=== PATIENT | female | born 1960 | race Caucasian/White ===

== ENCOUNTER 2017-06-25 07:34 | Day surgery (SDC) | payer OTHER ==
--- NOTE | 2017-06-20 16:50 | HP ---
ADMISSION DIAGNOSIS: Symptoms of reflux, epigastric discomfort. No colonoscopy to date, age 57. Excision lesion left knee. ANTICIPATED PROCEDURE: EGD, colonoscopy, and excision of lesion knee. PAST MEDICAL HISTORY: ALLERGIES: None. MEDICATIONS: None. SURGERIES: Left knee, tonsillectomy, D&C, uterine ablation. SOCIAL HISTORY: Negative. FAMILY HISTORY: Negative. REVIEW OF SYSTEMS: Frandy's, hypertension. PHYSICAL EXAMINATION: VITAL SIGNS: Normal. CHEST: Clear. COR: Regular. PLAN: EGD, colonoscopy, and excision lesion of the left knee.
[~2017-06-25 07:34] MED LIST: Lactated Ringers 1,000 ML IV SCH
[2017-06-25] MEDS ORDERED: Versed 2 MG/2 ML Injection IV ONE (07:35)
[2017-06-25] MEDS ORDERED: DIPRIVAN 200 MG/20 ML IV ONE (07:35)
[2017-06-25] MEDS ORDERED: Lactated Ringers 1,000 ML IV ONE ×2 (07:42→09:58)
[2017-06-25 08:09] VITALS: BP 141/88; PULSE 81; O2SAT 95
[2017-06-25] MEDS ORDERED: Kenalog-40 ONE (08:26)
[2017-06-25] MEDS ORDERED: XYLOCAINE 1% HCL 20 ML MDV ONE (08:26)
--- NOTE | 2017-06-26 08:03 | OP ---
SURGERY DATE/TIME: 06/25/2017 0935 PREOPERATIVE DIAGNOSES: 1) Epigastric pain, symptoms of gastroesophageal reflux disease. No recent examination. 2) The patient requires screening colonoscopy. 3) The patient has a hard, firm lesion left knee that has been painful and it is slightly larger. POSTOPERATIVE DIAGNOSIS: PROCEDURES: 1) Excision of 1 cm lesion through a 3 cm elliptical excision and closure. 2) EGD with hot polypectomy x12 with findings of 1.5 inch hiatal hernia, grade II gastroesophageal reflux disease and 12 gastric polyps. 3) Colonoscopic examination with 1 hot polyp taken. ANTICIPATED FOLLOW UP: Three years for follow up of polyps. SURGEON: Isidro Goel M.D. ANESTHESIA: MAC. INDICATION: The patient has a father with colon cancer. She has symptoms of gastroesophageal reflux disease long standing. She has been on multiple treatment regimens. She is still having epigastric pain. She presents for screening. She also has a hard, firm lesion on the knee that has been painful and enlarging. DESCRIPTION OF PROCEDURE: She is taken to surgery. Elliptical excision of knee lesion. Closed with 3-0 Vicryl, 4-0 Vicryl and Steri-Strips. EGD performed. A 2 inch hiatal hernia. Grade II over III gastroesophageal reflux disease. There were a dozen gastric polyps taken with hot biopsy forceps. Pylorus satisfactory. Duodenal bulb satisfactory. Second portion satisfactory. Scope withdrawn and looped upon itself. The above stated things were noted. Anal digital examination. The scope advanced to the cecum. Ileocecal valve and base of the cecum satisfactory. Ascending, hepatic, transverse, splenic, descending. In the high rectum there was a 1 cm polyp taken with hot biopsy forceps to completion. The patient tolerated the procedure satisfactorily. Findings discussed with the family in the waiting room.
== END 2017-06-25 12:00 | disposition home or self-care (01) ==
LOC: SDC 07:34
PROVIDERS: ATTEND Surgery
PROC: 0HBLXZZ Excision of Left Lower Leg Skin, External Approach (ICD-10-PCS; principal; 2017-06-25)
PROC: 0DB68ZX Excision of Stomach, Via Natural or Artificial Opening Endoscopic, Diagnostic (ICD-10-PCS; 2017-06-25)
PROC: 0DBP8ZX Excision of Rectum, Via Natural or Artificial Opening Endoscopic, Diagnostic (ICD-10-PCS; 2017-06-25)
DX: K21.9 Gastro-esophageal reflux disease without esophagitis (principal); Z12.11 Encounter for screening for malignant neoplasm of colon; L98.9 Disorder of the skin and subcutaneous tissue, unspecified; R20.8 Other disturbances of skin sensation; K31.7 Polyp of stomach and duodenum; K62.1 Rectal polyp; Z80.0 Family history of malignant neoplasm of digestive organs
CPT/HCPCS: 00740; 00810; 36415; 88305; J2250; J2704; J3301

== ENCOUNTER 2020-12-24 16:33 | Emergency (ER) | payer OTHER ==
[2020-12-24] MEDS ORDERED: TORAdol 30 mg Injection IV ONE (16:52)
[2020-12-24] MEDS ORDERED: Zofran 4 MG/2 ML VIAL IV ONE (16:52)
--- NOTE | 2020-12-24 16:52 | ERPHSYRPT ---
- History of Present Illness Time Seen by Provider: 12/24/20 16:39 Source: patient Exam Limitations: no limitations Physician History: The patient is a 60-year-old female with chief complaint of left upper quadrant left abdominal oblique pain that started just shortly prior to arrival. The pain is described as a sharp pain nonradiating constant and severe. The patient reportedly had an episode of nausea vomiting shortly after pain began. The pain has since started to roberto. She denies fever, chills, recent illness, diarrhea, dysuria, increased urinary frequency, urgency and bladder pressure. She denies history of kidney stones. She has not taken anything for pain prior to arrival. Associated Symptoms: nausea, vomiting, abdominal pain, No chest pain, No fever, No headaches Allergies/Adverse Reactions: peanut Allergy (Intermediate, Verified 12/24/20 16:51) Tightness of Throat erythromycin base [Erythromycin Base] Allergy (Verified 12/24/20 16:51) Vomiting Home Medications: Benicar Hct 20-12.5 mg Tablet 1 tab PO DAILY 04/14/13 [History] Celecoxib 100 mg [celeBREX 100 MG] 200 mg PO BID 04/14/13 [History] Cetirizine HCl 10 mg PO DAILY 04/14/13 [History] Guaifenesin [Mucinex] 600 mg PO BID 06/17/17 [History] Levothyroxine Sodium 112 Mcg [Synthroid 112 Mcg] 125 mcg PO DAILY 06/17/17 [History] Metformin HCl 500 mg [Glucophage 500 MG] 1,000 mg PO BID 06/17/17 [History] Multivitamin [Multivitamins] 1 each PO DAILY 06/17/17 [History] Omeprazole 20 MG [Prilosec 20 mg] 20 mg PO DAILY 06/17/17 [History] Hydroxychloroquine Sulfate [Plaquenil] 1 ea DAILY 12/24/20 [History] Pravastatin Sodium [Pravachol] 1 ea DAILY 12/24/20 [History] Zolpidem Tartrate 10 mg [Ambien 10 MG] 10 mg PO DAILY 12/24/20 [History] Hx Tetanus, Diphtheria Vaccination/Date Given: No (PT UNSURE) Hx Influenza Vaccination/Date Given: Yes (2012) Hx Pneumococcal Vaccination/Date Given: No - Review of Systems Constitutional: No Fever, No Chills Respiratory: No Cough, No Cyanosis, No Dyspnea, No Dyspnea on Exertion ([facility]) Cardiac: No Chest Pain Abdominal/Gastrointestinal: Abdominal Pain, Nausea, Vomiting, No Diarrhea, No Constipation, No Hematemesis, No Appetite Changes Genitourinary Symptoms: No Dysuria, No Frequency, No Hematuria, No Hesitancy - Past Medical History Pertinent Past Medical History: Yes Neurological History: No Pertinent History ENT History: No Pertinent History Cardiac History: Hypertension Respiratory History: No Pertinent History Endocrine Medical History: Hypothyroidism, Other Musculoskeletal History: Arthritis GI Medical History: No Pertinent History History: No Pertinent History Psycho-Social History: No Pertinent History Female Reproductive Disorders: No Pertinent History Other Medical History: Frandy Disease - Past Surgical History Past Surgical History: Yes Neuro Surgical History: No Pertinent History Cardiac: No Pertinent History Respiratory: No Pertinent History Gastrointestinal: No Pertinent History Genitourinary: No Pertinent History Musculoskeletal: Orthopedic Surgery Female Surgical History: Other Other Surgical History: UTERINE ABLATION, acl with partial Knee replacement lt - Social History Smoking Status: Never smoker Exposure to second hand smoke: No Drug Use: none Patient Lives Alone: No - Nursing Vital Signs Nursing Vital Signs: Initial Vital Signs Temperature 98.6 F 12/24/20 16:39 Pulse Rate 78 12/24/20 16:39 Respiratory Rate 18 12/24/20 16:39 Blood Pressure 172/113 12/24/20 16:39 O2 Sat by Pulse Oximetry 99 12/24/20 16:39 Pain Scale Pain Intensity 2 - Physical Exam General Appearance: no apparent distress, mild distress, alert, obese Eye Exam: PERRL/EOMI, No scleral icterus, No pale conjunctivae Ears, Nose, Throat Exam: normal ENT inspection Neck Exam: normal inspection, supple Respiratory Exam: normal breath sounds, lungs clear, airway intact, No chest tenderness, No respiratory distress Cardiovascular Exam: regular rate/rhythm, normal peripheral pulses, capillary refill <2 sec, No murmur, No friction rub, No gallop Gastrointestinal/Abdomen Exam: soft, tenderness (LUQ and left oblique tendern ess), No distention, No mass, No guarding, No pulsatile mass, No hepatomegaly, No splenomegaly Pelvic Exam: not done, deferred Rectal Exam: deferred Back Exam: normal inspection, No CVA tenderness Extremity Exam: normal inspection Neurologic Exam: alert, oriented x 3, cooperative Skin Exam: normal color, warm, dry, No rash, No petechiae, No jaundice SpO2 Interpretation: normal O2 Delivery: Room Air - Course Nursing assessment & vital signs reviewed: Yes - CT Exams Abdomen/Pelvis CT Interpretation: Other (4mm calculus in the left ureter with minimal hydronephrosis) Ordered Tests: Active Orders 24 hr Category Date Time Status IV Insertion STAT Care 12/24/20 16:49 Active ABDOMEN AND PELVIS W CONTRAST [CT] Stat Exams 12/24/20 16:50 Taken BMP Stat Lab 12/24/20 17:15 Completed CBC W DIFF Stat Lab 12/24/20 17:15 Completed CULTURE,URINE Stat Lab 12/24/20 16:50 Received LIPASE Stat Lab 12/24/20 17:15 Completed UA W/RFX UR CULTURE Stat Lab 12/24/20 16:50 Completed Medication Summary Discontinued Medications Generic Name Dose Route Start Last Admin Trade Name Freq PRN Reason Stop Dose Admin Ketorolac Tromethamine 15 mg 12/24/20 16:52 12/24/20 16:58 Toradol 30 Mg Injection IV 12/24/20 16:53 15 mg STAT ONE Administration Ketorolac Tromethamine Confirm 12/24/20 16:55 Toradol 30 Mg Injection Administered 12/24/20 16:56 Dose 30 mg .ROUTE .STK-MED ONE Ondansetron HCl 4 mg 12/24/20 16:52 12/24/20 16:58 Zofran 4 Mg/2 Ml Vial IV 12/24/20 16:53 4 mg STAT ONE Administration Ondansetron HCl Confirm 12/24/20 16:55 Zofran 4 Mg/2 Ml Vial Administered 12/24/20 16:56 Dose 4 mg .ROUTE .STK-MED ONE Lab/Rad Data: Laboratory Result Diagrams 12/24/20 17:15 12/24/20 17:15 Laboratory Results 12/24/20 12/24/20 12/24/20 Range/Units 17:15 17:15 16:50 WBC 14.4 H (4.0-10.5) K/mm3 RBC 4.36 (4.1-5.4) M/mm3 Hgb 12.9 (12.0-16.0) gm/dl Hct 40.0 (35-47) % MCV 91.7 (78-100) fl MCH 29.6 (26-32) pg MCHC 32.3 (32-36) g/dl RDW 13.1 (11.5-14.0) % Plt Count 226 (150-450) K/mm3 MPV 11.5 H (7.5-11.0) fl Gran % 82.8 H (36.0-66.0) % Eos # (Auto) 0.07 (0-0.5) Absolute Lymphs (auto) 1.75 (1.0-4.6) Absolute Monos (auto) 0.63 (0.0-1.3) Lymphocytes % 12.2 L (24.0-44.0) % Monocytes % 4.4 (0.0-12.0) % Eosinophils % 0.5 (0.00-5.0) % Basophils % 0.1 (0.0-0.4) % Absolute Granulocytes 11.91 H (1.4-6.9) Basophils # 0.02 (0-0.4) Sodium 139 (137-145) mmol/L Potassium 4.9 (3.5-5.1) mmol/L Chloride 105 (98-107) mmol/L Carbon Dioxide 28 (22-30) mmol/L Anion Gap 11.5 (5-15) MEQ/L BUN 28 H (7-17) mg/dL Creatinine 0.88 (0.52-1.04) mg/dL Estimated GFR > 60.0 ML/MIN Glucose 120 H (74-106) mg/dL Calcium 10.8 H (8.4-10.2) mg/dL Lipase 194 (23-300) U/L Urine Color YELLOW (YELLOW) Urine Appearance SLIGHTLY CLOUDY (CLEAR) Urine pH 5.0 (5-6) Ur Specific [place] 1.023 (1.005-1.025) Urine Protein 30 (Negative) Urine Ketones NEGATIVE (NEGATIVE) Urine Blood LARGE (0-5) Nate/ul Urine Nitrite NEGATIVE (NEGATIVE) Urine Bilirubin NEGATIVE (NEGATIVE) Urine Urobilinogen NEGATIVE (0-1) mg/dL Ur Leukocyte Esterase NEGATIVE (NEGATIVE) Urine WBC (Auto) 6-10 (0-5) /HPF Urine RBC (Auto) 51-100 (0-2) /HPF U Epithel Cells (Auto) RARE (FEW) /HPF Urine Bacteria (Auto) FEW (NEGATIVE) /HPF Urine Mucus (Auto) SLIGHT (NEGATIVE) /HPF Urine Culture Reflexed YES (NO) Urine Glucose NEGATIVE (NEGATIVE) mg/dL - Progress Progress: improved Progress Note: 12/24/20 17:42 Presents with left upper quadrant pain and left oblique pain with nausea and vomiting. Differential at this time includes obstructing kidney stone, AAA, mass, pyelonephritis, splenic infarct, artery thrombosis. Will obtain general labs to include CBC, BMP, urine and a CT scan of her abdomen pelvis for further evaluation. 12/24/20 18:41 CT reviewed and showed no evidence of obstructing stone. Her UA showed evidence of hematuria. Currently awaiting formal radiology review of the CT abdomen pelvis for further evaluation. Patient care will be transitioned to Dr. Wilder pending workup findings. 12/24/20 19:11 The patient was reassessed to find that she was pain-free and was updated with her diagnosis and need to follow-up with urology. Counseled pt/family regarding: lab results, diagnosis, need for follow-up, rad results - Departure Departure Disposition: Home Clinical Impression: Hydronephrosis with obstructing calculus, Renal colic on left side Condition: Stable Critical Care Time: No Referrals: PARUL PECK [COURTESY STAFF] - Instructions: Kidney Stones (DC), Renal Colic Additional Instructions: Please return to the emergency department if your pain becomes worse despite taking your pain medications. Also, please return to the emergency department immediately if you develop a fever in the context with your pain, specifically a temperature of 100.4 Fahrenheit or greater or any chills. Prescriptions: Hydrocodone/APAP 5/325 [[place] 5/325 mg] 1 - 2 each PO Q6H PRN PRN #16 tablet MDD 6 PRN Reason: Pain Ondansetron [Ondansetron Odt] 4 mg PO Q6HPRN PRN #10 tab.rapdis PRN Reason: Nausea/Vomiting Tamsulosin HCl 0.4 mg [Flomax 0.4 MG] 0.4 mg PO DAILY #10 cap
[2020-12-24] MEDS ORDERED: TORAdol 30 mg Injection ONE (16:55)
[2020-12-24] MEDS ORDERED: Zofran 4 MG/2 ML VIAL ONE (16:55)
[2020-12-24 17:23] LABS: Absolute Neutrophil Ct (ANC) 11.91 (1.4-6.9); BASOPHIL % 0.1 % (0.0-0.4); Basophil (Absolute #) 0.02 (0-0.4); Eosinophil % 0.5 % (0.00-5.0); Eosinophil (Absolute #) 0.07 (0-0.5); Hemoglobin 12.9 gm/dl (12.0-16.0); Lymphocyte (Absolute #) 1.75 (1.0-4.6); Lymphocytes % 12.2 % (24.0-44.0); Mean Cell Volume 91.7 fl (78-100); Mean Corpuscular Hemoglobin 29.6 pg (26-32); Mean Corpuscular Hgb Concent. 32.3 g/dl (32-36); Mean Platelet Volume 11.5 fl (7.5-11.0); Monocyte (Absolute #) 0.63 (0.0-1.3); Monocytes % 4.4 % (0.0-12.0); Neutrophil % 82.8 % (36.0-66.0); Platelet Count 226 K/mm3 (150-450); Red Blood Count 4.36 M/mm3 (4.1-5.4); Red Cell Distribution Width 13.1 % (11.5-14.0); White Blood Count 14.4 K/mm3 (4.0-10.5)
[2020-12-24 17:30] LABS: Appearance SLIGHTLY CLOUDY (CLEAR); Bacteria FEW /HPF (NEGATIVE); Bilirubin NEGATIVE (NEGATIVE); Blood LARGE Ery/ul (0-5); Epithelial Cells RARE /HPF (FEW); Glucose NEGATIVE (NEGATIVE); Ketones NEGATIVE (NEGATIVE); Leukocyte Esterase NEGATIVE (NEGATIVE); Mucus SLIGHT /HPF (NEGATIVE); Nitrite NEGATIVE (NEGATIVE); Protein,Urine Dip 30 (Negative); RBC 51-100 /HPF (0-2); Specific Gravity 1.023 (1.005-1.025); Urobilinogen NEGATIVE mg/dL (0-1)
[2020-12-24 17:34] LABS: ANION GAP 11.5 MEQ/L (5-15); BLOOD UREA NITROGEN 28 mg/dL (7-17); CHLORIDE 105 mmol/L (98-107); Calcium 10.8 mg/dL (8.4-10.2); Carbon Dioxide 28 mmol/L (22-30); Creatinine 1 0.88 mg/dL (0.52-1.04); EST GLOMERULAR FILTRATION RATE > 60.0 ML/MIN; Glucose 120 mg/dL (74-106); LIPASE 194 U/L (23-300); Potassium 4.9 mmol/L (3.5-5.1); SODIUM 139 mmol/L (137-145)
[2020-12-24 19:36] VITALS: BP 147/73; PULSE 73; O2SAT 96
--- NOTE | 2020-12-25 08:54 | XRAY ---
Indication: Left upper quadrant pain and vomiting. Multiple contiguous axial images obtained through the abdomen and pelvis using 80 cc Isovue 370 contrast. Comparison: None Lung bases demonstrates mild dependent atelectasis and small left lower lobe calcified granuloma. No infiltrate or effusion. Heart is not enlarged. Small hiatal hernia. Noncontrasted stomach and bowel loops appear nonobstructed. Normal appendix. No free fluid/air. Suspect 4 mm distal left ureteral calculus approximately 2 cm proximal to the UVJ. Proximal left ureter is asymmetrically prominent up to 6 mm along with mild hydronephrosis consistent with partial obstructive uropathy. Spleen is enlarged measuring 14 cm with calcified granulomas. Remaining liver, gallbladder, pancreas, spleen, adrenal glands, kidneys, ureters, bladder, and uterus appear unremarkable. Minimal aortic calcifications. No AAA or pathologic retroperitoneal lymphadenopathy. Osseous structures intact with mild degenerative changes throughout the thoracolumbar spine. Impression: 1. 4 mm distal left ureteral calculus producing partial obstruction. 2. Incidental small hiatal hernia, splenomegaly, and old granulomatous disease.
== END 2020-12-24 19:45 | disposition home or self-care (01) ==
LOC: ED 16:33
DX: N13.2 Hydronephrosis with renal and ureteral calculous obstruction (principal); R10.12 Left upper quadrant pain; R11.2 Nausea with vomiting, unspecified; Z79.899 Other long term (current) drug therapy; I10 Essential (primary) hypertension; E03.9 Hypothyroidism, unspecified
CPT/HCPCS: 36000; 36415; 74177; 80048; 81001; 83690; 85025; 87086; 96374; 96375; 99284; J1885; J2405

== ENCOUNTER 2021-09-12 08:38 | Day surgery (SDC) | payer OTHER ==
[~2021-09-12 08:38] MED LIST changes: +Lactated Ringers 1,000 ML IV ONE; -Lactated Ringers 1,000 ML IV SCH
[2021-09-12] MEDS ORDERED: Lactated Ringers 1,000 ML IV SCH (09:00)
[2021-09-12] MEDS ORDERED: DIPRIVAN 200 MG/20 ML IV ONE ×2 (10:37→10:48)
[2021-09-12 11:33] VITALS: O2SAT 96
[2021-09-12 11:42] VITALS: BP 116/51; PULSE 75
--- NOTE | 2021-09-12 12:41 | OP ---
SURGERY DATE/TIME: 09/12/2021 1040 PREOPERATIVE DIAGNOSIS: Family history of colon cancer, personal history of polyps. POSTOPERATIVE DIAGNOSIS: Normal, redundant colon. PROCEDURE: Colonoscopy complete to cecum. SURGEON: Isidro Goel M.D. ANESTHESIA: MAC. COMPLICATIONS: None. CONDITION: Stable. INDICATION: A patient requiring evaluation. DESCRIPTION OF PROCEDURE: Taken to endoscopy. Left lateral decubitus position. Anal digital examination satisfactory. Scope introduced. Scope advanced to hepatic flexure. With care and patience and external pressure the scope was able to be dropped into the base of the cecum this was suctioned. It was satisfactory. Ileocecal valve, base of the cecum, appendiceal orifice, ascending, hepatic, transverse, splenic, descending, sigmoid, rectum, anus normal examination today. Certainly a redundant colon and fairly significant diameter but normal. PLAN: Follow up five years with history of polyps and family history of colon cancer.
== END 2021-09-12 12:00 | disposition home or self-care (01) ==
LOC: SDC 08:38
PROVIDERS: ATTEND Surgery
DX: Z09 Encounter for follow-up examination after completed treatment for conditions other than malignant neoplasm (principal); Z86.010 Personal history of colon polyps; Z80.0 Family history of malignant neoplasm of digestive organs; Q43.8 Other specified congenital malformations of intestine
CPT/HCPCS: J2704